=== PATIENT | female | born 1970 | race Caucasian/White ===

== ENCOUNTER 2016-07-25 15:45 | Emergency (ER) | payer SELFPAY ==
[~2016-07-25] VITALS: Ht 172.7 cm; Wt 81.6 kg
== END 2016-07-25 17:07 | disposition short-term general hospital (02) ==
LOC: ER 15:45
DX: S16.1XXA Strain of muscle, fascia and tendon at neck level, initial encounter (principal); R51 Headache; M25.511 Pain in right shoulder; M25.512 Pain in left shoulder; M25.562 Pain in left knee; Z88.8 Allergy status to other drugs, medicaments and biological substances; V89.2XXA Person injured in unspecified motor-vehicle accident, traffic, initial encounter

== ENCOUNTER → 2016-09-05 | Outpatient (CLI) | payer OTHER | END | disposition short-term general hospital (02) | LOC: CLNEUR 10:07 | DX: F07.81 Postconcussional syndrome (principal); G40.909 Epilepsy, unspecified, not intractable, without status epilepticus ==

== ENCOUNTER → 2016-12-05 | Outpatient (CLI) | payer OTHER | END | disposition short-term general hospital (02) | LOC: CLNEUR 02:27 | DX: G40.909 Epilepsy, unspecified, not intractable, without status epilepticus (principal); F07.81 Postconcussional syndrome ==